=== PATIENT | female | born 1970 | race Caucasian/White ===

== ENCOUNTER 2016-12-27 09:16 | Emergency (ER) | payer OTHER ==
[~2016-12-27] VITALS: Ht 167.6 cm; Wt 104.0 kg
[~2016-12-27 09:16] MED LIST: NAPROSYN500 MG; NOHOMEMEDS; PERCOCET 5/31 TABLET PO; PRILOSEC OTC20 MG PO
[2016-12-27 10:36] LABS: BASOPHIL COUNT 0.1 K/uL (0-0.1); EOSINOPHIL (%) 1.6 % (0-5); EOSINOPHIL COUNT 0.2 K/uL (0-0.3); HEMATOCRIT 41.2 % (36.0-46.0); IMMATURE GRANULOCYTE (%) 0.4 % (0.0-0.7); IMMATURE GRANULOCYTE COUNT 0.1 K/uL; INSTRUMENT ABS NEUTROPHIL CT 7.2 K/uL; LYMPHOCYTE COUNT 3.1 K/uL (1.0-2.8); MCH 29.5 PG (29.0-34.0); MCHC 32.8 G/DL (30.0-36.0); MEAN PLAT.VOLUME 9.6 uM^3 (9.5-12.4); MONOCYTE (%) 6.4 % (3-12); MONOCYTE COUNT 0.7 K/uL (0-0.8); NEUTROPHIL (%) 63.7 % (45-76); NEUTROPHIL COUNT 7.2 K/uL (1.8-6.4); PLATELET COUNT 266 K/uL (156-360); RBC DIS.WIDTH-CV 13.1 % (11.8-14.6); RBC DIS.WIDTH-SD 42.6 % (39-53); RED BLOOD COUNT 4.58 M/uL (3.80-5.20); WHITE BLOOD COUNT 11.3 K/uL (4.1-10.2)
[2016-12-27 10:44] LABS: CHLORIDE 108 mEq/L (99-109); POTASSIUM 3.8 mEq/L (3.7-5.4); SODIUM 139 mEq/L (136-147)
[2016-12-27 10:46] LABS: GLUCOSE 91 mg/dL (70-99)
[2016-12-27 10:47] LABS: ANION GAP 7 MEQ/L (2-14); D-DIMER ELISA 0.24 mg/L FEU (< 0.57); PROTHROMBIN TIME 10.5 (9.2-11.2); PTT 27.9 (25-32)
[2016-12-27 10:48] LABS: TOTAL BILIRUBIN 0.6 mg/dL (0.0-1.0)
[2016-12-27 10:49] LABS: ALKALINE PHOSPHATASE 96 IU/L (3-129)
[2016-12-27 10:50] LABS: GFR ESTIMATE (CALCULATED) > 59 mL/min/
[2016-12-27 10:51] LABS: UREA NITROGEN (BUN) 8 mg/dL (9-23)
[2016-12-27 10:56] LABS: TROP-I INTERPRETATION NEGATIVE; TROPONIN-I < 0.01 ng/mL (0.0-0.30)
[2016-12-27 13:23] LABS: TROP-I INTERPRETATION NEGATIVE; TROPONIN-I < 0.01 ng/mL (0.0-0.30)
[2016-12-27] MEDS ORDERED: LISINOPRIL10 MG PO (13:31)
[2016-12-27 13:36] VITALS: BP 147/99
== END 2016-12-27 13:51 | disposition home or self-care (01) ==
LOC: EME 09:16
PROVIDERS: Emergency Medicine
DX: R07.89 Other chest pain (principal); I10 Essential (primary) hypertension
CPT/HCPCS: 71010; 71275; 80053; 84484; 85025; 85379; 85610; 85730; 93005; 99281; 99285; J1885